=== PATIENT | female | born 1965 | race Caucasian/White ===

== ENCOUNTER 2017-05-21 10:17 | Inpatient (IN) | payer OTHER ==
[~2017-05-21] VITALS: Ht 157.5 cm; Wt 53.5 kg
--- NOTE | 2017-05-21 11:00 | NUR ---
This patient is a 52 year old female who presents to the emergency department to be evaluated for the chief complaint of left flank pain which has been ongoing for the past couple of months but reports an exacerbating of pain for the past couple of days. To the patient states that she has an appointment at [facility] at 2:00 PM today but could not stand the pain which is why she came into the emergency department. Patient shows no facial GRIMACING at this time. Patient was medically evaluated by Dr. Arnett.
[2017-05-21 11:15] LABS: BASOPHIL % 0.3 % (0-2); PLATELET COUNT 207 x10^3mcL (130-400); RED CELL DISTRIBUTION WIDTH 13.2 % (11.5-14.5)
[2017-05-21 11:23] LABS: UA SPECIFIC GRAVITY 1.005 (1.005-1.035)
[2017-05-21 11:24] LABS: urine erythrocyte NEGATIVE (NEGATIVE)
[2017-05-21 11:26] LABS: microscopic required? NO
[2017-05-21 11:34] LABS: CALCIUM 9.2 mg/dL (8.5-10.1); CHLORIDE SERUM 107 mmol/L (98-107); CREATININE SERUM 0.9 mg/dL (0.6-1.0); GFR1 > 60 mL/min; GLUCOSE SERUM 96 mg/dL (74-106); POTASSIUM SERUM 4.5 mmol/L (3.5-5.1); SODIUM SERUM 142 mmol/L (136-145)
--- NOTE | 2017-05-21 11:36 | NUR ---
PT REPORTS A DECREASE IN PAIN FROM A 7 TO A 4 OUT OF TEN
[2017-05-21 11:38] LABS: ALBUMIN 4.2 g/dL (3.4-5.0); ALKALINE PHOSPHATASE 82 U/L (46-116); ALT/SGPT 20 U/L (14-59); AST/SGOT 15 U/L (15-37); BILIRUBIN TOTAL 0.5 mg/dL (0.20-1.00); LIPASE 148 IU/L (73-393); TOTAL PROTEIN, SERUM 7.5 g/dL (6.4-8.2)
--- NOTE | 2017-05-21 12:00 | NUR ---
ULTRASOUND AT BEDSIDE FOR ORDERED US.
--- NOTE | 2017-05-21 12:13 | NUR ---
PT AMBULATED TO AND FROM THE RESTROOM WITH STEADY GAIT AND WITHOUT INCIDENCE
--- NOTE | 2017-05-21 14:07 | NUR ---
REPORT CALLED TO NOELLE CARTWRIGHT, TAKING REPORT FOR JEANA CARTWRIGHT, TO ASSUME CARE OF PT POST TRANSFER TO TELE UNIT.
--- NOTE | 2017-05-21 14:21 | NUR ---
REC'D PT FROM ER VIA ESTELA. PT IS AAOX4. C/O 02/04 HEADACHE. TELE #26 NSR. RESP EVEN AND UNLABORED. NO SOB NOTED. PT C/O 02/04 LEFT FLANK PAIN. IV NOTED TO RAC. INTACT AND PATENT. ORIENTED PT TO CALL LIGHT. BED IN LOWEST POSITION. WILL ENDORSE TO PRIMARY RN.
[2017-05-21 14:35] VITALS: BP 124/66
--- NOTE | 2017-05-21 15:00 | NUR ---
RECEIVED PT FROM RESOURCE NURSE. PT IS AA/O X4. PT COMPLAIN OF PAIN 02/04, WILL PROVIDED PAIN MED PER ORDER. PT BREATHING ON RA, EVEN, UNLABORED. IV SITE PATENT, INTACT. RESUME IVF INFUSING PER ORDER.
[2017-05-21 15:16] LABS: PHOSPHOROUS 3.5 mg/dL (2.5-4.9)
[2017-05-21 15:19] LABS: CHOLESTEROL/HDL RATIO 2.2
[2017-05-21 15:22] LABS: T3 TOTAL 1.06 ng/mL
[2017-05-21 15:24] LABS: FREE T4 0.84 ng/dL (0.76-1.46); FREE THYROXINE INDEX 2.6 ug/dL (1.4-4.5); T4(THYROXINE) 8.3 ug/dL (4.7-13.3)
[2017-05-21 15:44] LABS: AMPHETAMINE QUAL UR NONE DETECTED (NEG <=1000)
--- NOTE | 2017-05-21 16:05 | NUR ---
START STRAINING URINE PER ORDER.
[2017-05-21 17:17] VITALS: Ht 157.5 cm; Wt 53.5 kg
[2017-05-21 17:52] VITALS: BP 128/77
--- NOTE | 2017-05-21 19:04 | NUR ---
PT'S FAMILY MEMBER AT BED SIDE. PT COMPLAIN OF L FLANK PAINS, MORPHINE GIVEN PER PRN ORDER. IV SITE PATENT,INTACT. IVF INFUSING WELL. PT REQUEST HEATING PAD, WILL ENDOSE COMING NURSE TO FOLLOW UP.
--- NOTE | 2017-05-21 19:55 | NUR ---
RECEIVED REPORT FROM DAY SHIFT RN. PT RESTING IN SEMIFOWLER'S POSITION. NO C/O PAIN, NO N/V AT THIS TIME. IV ON RAC, NS INFUSING. SAFETY MEASURES IN PLACE. INSTRUCTED PT TO CALL IF ASSISTANCE IS NEEDED. CALL LIGHT WITHIN REACH.
[2017-05-21 21:13] VITALS: BP 142/46
--- NOTE | 2017-05-21 23:14 | NUR ---
PT C/O HEADACHE, MEDICATED WITH TYLENOL.
--- NOTE | 2017-05-22 05:41 | NUR ---
PT SLEPT AT LONG INTERVALS DURING SHIFT. NO C/O OF FLANK PAIN. PT STATES HEATING PAD EFFECTIVE. URINE STRAINED. NO CALCULI NOTED. C/O HEADACHE, TYLENOL GIVEN. SAFETY MEASURES MAINTAINED. CALL LIGHT WITHIN REACH. WILL ENDORSE CONTINUITY OF CARE TO DAY SHIFT RN.
[2017-05-22 06:22] VITALS: BP 130/53
[2017-05-22 06:28] LABS: BASOPHIL % 0.4 % (0-2); PLATELET COUNT 149 x10^3mcL (130-400); RED CELL DISTRIBUTION WIDTH 13.6 % (11.5-14.5)
[2017-05-22 06:41] LABS: CALCIUM 8.5 mg/dL (8.5-10.1); CARBON DIOXIDE 27.9 mmol/L (21-32); CHLORIDE SERUM 110 mmol/L (98-107); CREATININE SERUM 0.9 mg/dL (0.6-1.0); GFR1 > 60 mL/min; GLUCOSE SERUM 92 mg/dL (74-106); MAGNESIUM 1.8 mg/dL (1.8-2.4); PHOSPHOROUS 4.2 mg/dL (2.5-4.9); POTASSIUM SERUM 4.7 mmol/L (3.5-5.1); SODIUM SERUM 144 mmol/L (136-145)
--- NOTE | 2017-05-22 07:57 | NUR ---
RECEIVED AWAKE, ALERT AND ORIENTED. NO DISTRESS NOTED. NO C/O PAIN OR DISCOMFORT AT THIS TIME. IVF INFUSING WELL AND SITE CLEAR. CALL LIGHT WITHIN REACH. WILL CONTINUE W/PLAN OF CARE.
--- NOTE | 2017-05-22 08:18 | NUR ---
AM ROUNDS DONE BY DR. GARCIA AND MEDICAL TEAM, PLAN TO HAVE UROLOGY CONSULT. PT AGREED WITH PLAN. CONCERNS ADDRESSED.
[2017-05-22 08:42] VITALS: BP 131/60
--- NOTE | 2017-05-22 08:51 | NUR ---
PT C/O FLANK PAIN 05/07. MEDICATED WITH MORPHINE IVP.
[2017-05-22 14:07] VITALS: BP 128/66
--- NOTE | 2017-05-22 14:38 | NUR ---
RESTING IN NO DISTRESS. NO C/O PAIN AT THIS TIME
--- NOTE | 2017-05-22 16:04 | NUR ---
PT C/O BACK PAIN 04/07. MEDICATED WITH NORCO PER PRN ORDER.
[2017-05-22 17:17] VITALS: BP 131/49
[2017-05-22] MEDS ORDERED: FLO4 PO (17:42)
[2017-05-22] MEDS ORDERED: APAP/HYDROCODON1 T13 PO (17:42)
[2017-05-22] MEDS ORDERED: IBUPROFEN400 MG PO (17:43)
[2017-05-22 18:00] VITALS: BP 131/49
--- NOTE | 2017-05-22 18:26 | NUR ---
PT WILL BE DC'D HOME THIS PM. DC INSTRUCTIONS REVIEWED WITH PT AND RX GIVEN. HL REMOVED, SITE/CATH INTACT. NO C/O PAIN OR DISCOMFORT AT THIS TIME. PT IS WAITING FOR RIDE HOME.
--- NOTE | 2017-05-22 18:41 | NUR ---
PT DC'D HOME, IN NO DISTRESS. NO C/O PAIN OR DISCOMFORT. PERSONAL BELONGINGS TAKEN HOME.
== END 2017-05-22 18:27 | disposition home or self-care (01) | DRG 694 ==
LOC: ED 10:17 → DU 13:33
PROVIDERS: Emergency Medicine; ADMIT Family Medicine
DX: N20.0 Calculus of kidney (principal); N12 Tubulo-interstitial nephritis, not specified as acute or chronic; Z68.21 Body mass index [BMI] 21.0-21.9, adult
CPT/HCPCS: 83880; 84439; 90658; 99406; J1885; J1956; J2270; J2405; J3010; J7030; Q0092

== ENCOUNTER 2017-10-24 17:50 | Emergency (ER) | payer OTHER ==
[~2017-10-24] VITALS: Ht 157.5 cm; Wt 51.2 kg
[~2017-10-24 17:50] MED LIST: APAP/HYDROCODON1 T13 PO; FLO4 PO; IBUPROFEN400 MG PO
[2017-10-24 18:12] VITALS: Ht 157.5 cm; Wt 51.2 kg
[2017-10-24 18:58] LABS: BASOPHIL % 1.5 % (0-2); PLATELET COUNT 239 x10^3mcL (130-400); RED CELL DISTRIBUTION WIDTH 12.9 % (11.5-14.5)
[2017-10-24 19:06] LABS: CALCIUM 8.8 mg/dL (8.5-10.1); CARBON DIOXIDE 26.4 mmol/L (21-32); CHLORIDE SERUM 105 mmol/L (98-107); CREATININE SERUM 0.9 mg/dL (0.6-1.0); GFR1 > 60 mL/min; GLUCOSE SERUM 101 mg/dL (74-106); POTASSIUM SERUM 3.9 mmol/L (3.5-5.1); SODIUM SERUM 142 mmol/L (136-145)
[2017-10-24 19:11] LABS: ALBUMIN 4.1 g/dL (3.4-5.0); ALKALINE PHOSPHATASE 78 U/L (46-116); ALT/SGPT 23 U/L (14-59); AMYLASE 37 U/L (25-115); AST/SGOT 14 U/L (15-37); BILIRUBIN TOTAL 0.27 mg/dL (0.20-1.00); LIPASE 133 IU/L (73-393); TOTAL PROTEIN, SERUM 7.1 g/dL (6.4-8.2)
[2017-10-24 23:00] VITALS: BP 128/72
== END 2017-10-24 23:00 | disposition home or self-care (01) ==
LOC: ED 17:50
PROVIDERS: Specialist
DX: R10.33 Periumbilical pain (principal); Z90.49 Acquired absence of other specified parts of digestive tract
CPT/HCPCS: 83880; J0780; J1885; J3010; J7030; Q9967